=== PATIENT | male | born 1965 | race Caucasian/White ===

== ENCOUNTER 2021-01-19 10:35 | Emergency (ER) | payer OTHER ==
[2021-01-19 10:56] VITALS: BP 136/86; PULSE 76; TEMP 98.3; BMI 26.6
[2021-01-19] MEDS ORDERED: CASIRIVIMAB/IMDEVIMAB 10 ML in SODIUM CHLORIDE 100 ML IVPB ONE (11:00)
== END 2021-01-19 15:16 | disposition home or self-care (01) ==
LOC: JER 10:35 → JCOVINFU 10:35
PROC: 3E033GC Introduction of Other Therapeutic Substance into Peripheral Vein, Percutaneous Approach (ICD-10-PCS; principal; 2021-01-19)
DX: U07.1 COVID-19 (principal)
CPT/HCPCS: 71046-TC-FY; 99284-25; Q0240